=== PATIENT | male | born 1960 | race Caucasian/White ===

== ENCOUNTER 2020-01-15 16:21 | Inpatient (IN) ==
[2020-01-15] MEDS ORDERED: Isovue-370 500 ML BOTTLE IVP ONE (16:54)
[2020-01-15 17:02] LABS: Basophils % 0.3 %; Eosinophils # 0.1 K/mcL (0.0-0.6); Eosinophils % 0.4 %; Hematocrit 34.7 % (37.5-50.1); Hemoglobin 10.6 g/dL (12.9-16.9); Immature Granulocytes % 0.9 % (0-4); Lymphocytes % 8.2 %; Mean Corpuscular HGB Conc 30.5 g/dL (31.6-35.5); Mean Corpuscular Hemoglobin 25.1 pg (28.0-33.3); Mean Corpuscular Volume 82.2 fL (83.0-100.0); Mean Platelet Volume 12.6 fL (9.4-12.4); Monocytes # 1.3 K/mcL (0.0-1.3); Monocytes % 11.1 %; Neutrophils # 9.6 K/mcL (1.6-8.9); Platelet Count 316 K/mcL (140-400); Red Blood Count 4.22 M/mcL (4.19-5.50); Red Cell Distribution Width 19.9 % (11.5-14.5); Segmented Neutrophils % 79.1 %; White Blood Count 12.1 K/mcL (4.3-11.1)
[2020-01-15 17:08] LABS: INR 1.2; Prothrombin Time 13.5 Seconds (9.4-12.1)
[2020-01-15 17:29] LABS: Alanine Aminotransferase 115 Units/L (7-52); Albumin 3.6 g/dL (3.5-5.7); Albumin/Globulin Ratio 1.1 (1.1-2.2); Alkaline Phosphatase 631 Units/L (34-104); Aspartate Amino Transferase 67 Units/L (13-39); BUN/Creatinine Ratio 20 (6-26); Bilirubin,Direct 5.2 mg/dL (0.0-0.2); Bilirubin,Indirect 3.6 mg/dL (0.0-1.0); Bilirubin,Total 8.8 mg/dL (0.3-1.0); Blood Urea Nitrogen 14 mg/dL (8-23); Carbon Dioxide 25 mEq/L (23-29); Chloride 94 mEq/L (98-107); Globulin 3.4 g/dL (2.4-3.5); Glucose 176 mg/dL (70-105); Lipase 138 Units/L (11-82); Osmolality,Calculated 271 (280-300); Potassium 3.6 mEq/L (3.5-5.1); Sodium 128 mEq/L (136-145); eGFR For African Americans > 60 (> 60); eGFR For Non-African Americans > 60 (> 60)
[2020-01-15] MEDS ORDERED: Naloxone 0.4 MG/ML INJ IVP PRN (17:54)
[2020-01-15] MEDS ORDERED: Ondansetron ODT 4 MG TAB.RAPDIS SL PRN (17:54)
[2020-01-15] MEDS: 0.9 % Sodium Chloride 1,000 ML IVC SCH (18:11)
[2020-01-15] MEDS ORDERED: D5% in Water 1,000 ML IVC PRN (18:19)
[2020-01-15] MEDS ORDERED: *HR* Dextrose 50 % in Water (Vial) 50 ML VIAL IVP PRN (18:19)
[2020-01-15] MEDS ORDERED: Dextrose Gel 15 GM/37.5 ML TUBE PO PRN ×2 (18:19)
[2020-01-15 18:21] LABS: Carcinoembryonic Antigen 433.1 ng/mL (Less than 5.0)
[2020-01-15] MEDS: Piperacillin/Tazobactam 3.375 GM in 0.9 % Sodium Chloride Mini Bag 100 ML IVPB SCH (21:50)
[2020-01-15] MEDS: Insulin LISPRO 300 UNITS/3 ML VIAL SQ SCH (21:53)
[2020-01-15] MEDS ORDERED: Melatonin 3 MG TABLET PO PRN (22:36)
[2020-01-16] MEDS: Piperacillin/Tazobactam 3.375 GM in 0.9 % Sodium Chloride Mini Bag 100 ML IVPB SCH ×3 (03:30→20:45)
[2020-01-16 05:44] LABS: Basophils % 0.4 %; Eosinophils # 0.1 K/mcL (0.0-0.6); Eosinophils % 0.9 %; Hematocrit 27.8 % (37.5-50.1); Immature Granulocytes % 0.7 % (0-4); Lymphocytes # 0.8 K/mcL (0.6-4.6); Lymphocytes % 9.1 %; Mean Corpuscular HGB Conc 31.3 g/dL (31.6-35.5); Mean Corpuscular Hemoglobin 25.9 pg (28.0-33.3); Mean Corpuscular Volume 82.7 fL (83.0-100.0); Mean Platelet Volume 12.1 fL (9.4-12.4); Monocytes # 1.1 K/mcL (0.0-1.3); Monocytes % 12.5 %; Neutrophils # 6.5 K/mcL (1.6-8.9); Platelet Count 217 K/mcL (140-400); Red Blood Count 3.36 M/mcL (4.19-5.50); Red Cell Distribution Width 20.1 % (11.5-14.5); Segmented Neutrophils % 76.4 %; White Blood Count 8.6 K/mcL (4.3-11.1)
[2020-01-16 05:48] LABS: Hemoglobin 8.7 g/dL (12.9-16.9)
[2020-01-16 05:50] LABS: INR 1.3; Prothrombin Time 14.2 Seconds (9.4-12.1)
[2020-01-16 05:52] LABS: Activated Partial Thrombo Time 31.9 Seconds (26.0-36.0)
[2020-01-16 06:05] LABS: Alanine Aminotransferase 90 Units/L (7-52); Albumin 2.9 g/dL (3.5-5.7); Albumin/Globulin Ratio 1.1 (1.1-2.2); Alkaline Phosphatase 502 Units/L (34-104); Aspartate Amino Transferase 58 Units/L (13-39); BUN/Creatinine Ratio 25 (6-26); Bilirubin,Total 8.1 mg/dL (0.3-1.0); Blood Urea Nitrogen 15 mg/dL (8-23); Calcium 8.1 mg/dL (8.6-10.3); Carbon Dioxide 23 mEq/L (23-29); Chloride 98 mEq/L (98-107); Globulin 2.6 g/dL (2.4-3.5); Glucose 133 mg/dL (70-105); Osmolality,Calculated 273 (280-300); Potassium 3.4 mEq/L (3.5-5.1); Sodium 130 mEq/L (136-145); Total Protein 5.5 g/dL (6.4-8.9); eGFR For African Americans > 60 (> 60); eGFR For Non-African Americans > 60 (> 60)
[2020-01-16] MEDS: Insulin LISPRO 300 UNITS/3 ML VIAL SQ SCH ×4 (08:00→20:46)
[2020-01-16] MEDS: 0.9 % Sodium Chloride 1,000 ML IVC SCH (10:27)
[2020-01-16] MEDS: Nicotine 21 MG PATCH.TD24 TD SCH (10:39)
[2020-01-16] MEDS ORDERED: Ringers Solution, Lactated 1,000 ML IVC SCH (13:30)
[2020-01-16] MEDS ORDERED: *HR* FentaNYL (PF) 100 MCG/2 ML VIAL ONE (13:44)
[2020-01-16] MEDS ORDERED: *HR* Midazolam HCl 2 MG/2 ML VIAL ONE (13:44)
[2020-01-16] MEDS ORDERED: Indomethacin 50 MG SUPP.RECT RC ONE (15:21)
[2020-01-16] MEDS: Ringers Solution, Lactated 1,000 ML IVC SCH (17:14)
[2020-01-16 19:33] LABS: Sodium, Urine 111.5 mEq/L
[2020-01-17 02:35] LABS: Basophils % 0.2 %; Eosinophils # 0.1 K/mcL (0.0-0.6); Eosinophils % 0.6 %; Hematocrit 29.6 % (37.5-50.1); Hemoglobin 9.2 g/dL (12.9-16.9); Immature Granulocytes % 1.1 % (0-4); Lymphocytes # 0.9 K/mcL (0.6-4.6); Lymphocytes % 9.6 %; Mean Corpuscular HGB Conc 31.1 g/dL (31.6-35.5); Mean Corpuscular Hemoglobin 25.4 pg (28.0-33.3); Mean Corpuscular Volume 81.8 fL (83.0-100.0); Mean Platelet Volume 12.7 fL (9.4-12.4); Monocytes # 0.9 K/mcL (0.0-1.3); Monocytes % 10.2 %; Neutrophils # 7.1 K/mcL (1.6-8.9); Platelet Count 245 K/mcL (140-400); Red Blood Count 3.62 M/mcL (4.19-5.50); Red Cell Distribution Width 19.7 % (11.5-14.5); Segmented Neutrophils % 78.3 %
[2020-01-17] MEDS: Ringers Solution, Lactated 1,000 ML IVC SCH ×3 (02:54→16:04)
[2020-01-17] MEDS: Piperacillin/Tazobactam 3.375 GM in 0.9 % Sodium Chloride Mini Bag 100 ML IVPB SCH ×2 (02:54→12:06)
[2020-01-17 02:55] LABS: Alanine Aminotransferase 93 Units/L (7-52); Albumin/Globulin Ratio 1.1 (1.1-2.2); Alkaline Phosphatase 526 Units/L (34-104); Aspartate Amino Transferase 65 Units/L (13-39); BUN/Creatinine Ratio 15 (6-26); Bilirubin,Total 8.9 mg/dL (0.3-1.0); Blood Urea Nitrogen 10 mg/dL (8-23); Calcium 8.3 mg/dL (8.6-10.3); Carbon Dioxide 23 mEq/L (23-29); Chloride 98 mEq/L (98-107); Globulin 2.8 g/dL (2.4-3.5); Glucose 175 mg/dL (70-105); Osmolality,Calculated 273 (280-300); Potassium 3.5 mEq/L (3.5-5.1); Sodium 130 mEq/L (136-145); Total Protein 5.8 g/dL (6.4-8.9); eGFR For African Americans > 60 (> 60); eGFR For Non-African Americans > 60 (> 60)
[2020-01-17] MEDS: Nicotine 21 MG PATCH.TD24 TD SCH (08:25)
[2020-01-17] MEDS: Insulin LISPRO 300 UNITS/3 ML VIAL SQ SCH ×4 (08:27→21:05)
[2020-01-17] MEDS ORDERED: *HR* Propofol 200 MG/20 ML VIAL IVP ONE (09:28)
[2020-01-17] MEDS ORDERED: *HR* Propofol 500 MG/50 ML BOTTLE IVP ONE (09:28)
[2020-01-17] MEDS ORDERED: Lidocaine -MPF 2% 5 ML VIAL SQ ONE (09:28)
[2020-01-17] MEDS ORDERED: traZODone 50 MG TABLET PO PRN (12:00)
[2020-01-18 01:28] LABS: Basophils % 0.4 %; Eosinophils # 0.1 K/mcL (0.0-0.6); Eosinophils % 0.7 %; Hematocrit 28.9 % (37.5-50.1); Hemoglobin 9.1 g/dL (12.9-16.9); Immature Granulocytes % 0.7 % (0-4); Lymphocytes % 10.8 %; Mean Corpuscular HGB Conc 31.5 g/dL (31.6-35.5); Mean Corpuscular Hemoglobin 26.1 pg (28.0-33.3); Mean Platelet Volume 12.3 fL (9.4-12.4); Monocytes % 10.4 %; Neutrophils # 7.3 K/mcL (1.6-8.9); Platelet Count 232 K/mcL (140-400); Red Blood Count 3.48 M/mcL (4.19-5.50); Red Cell Distribution Width 20.5 % (11.5-14.5); White Blood Count 9.5 K/mcL (4.3-11.1)
[2020-01-18 01:43] LABS: Albumin 2.9 g/dL (3.5-5.7); Albumin/Globulin Ratio 1.1 (1.1-2.2); Bilirubin,Direct 5.1 mg/dL (0.0-0.2); Bilirubin,Indirect 3.2 mg/dL (0.0-1.0); Bilirubin,Total 8.3 mg/dL (0.3-1.0); Globulin 2.6 g/dL (2.4-3.5); Total Protein 5.5 g/dL (6.4-8.9)
[2020-01-18 01:45] LABS: Alanine Aminotransferase 92 Units/L (7-52); Albumin 2.9 g/dL (3.5-5.7); Albumin/Globulin Ratio 1.1 (1.1-2.2); Alkaline Phosphatase 493 Units/L (34-104); Aspartate Amino Transferase 65 Units/L (13-39); BUN/Creatinine Ratio 14 (6-26); Bilirubin,Total 8.3 mg/dL (0.3-1.0); Blood Urea Nitrogen 8 mg/dL (8-23); Calcium 8.5 mg/dL (8.6-10.3); Carbon Dioxide 23 mEq/L (23-29); Chloride 99 mEq/L (98-107); Globulin 2.7 g/dL (2.4-3.5); Glucose 117 mg/dL (70-105); Osmolality,Calculated 273 (280-300); Potassium 3.5 mEq/L (3.5-5.1); Sodium 132 mEq/L (136-145); Total Protein 5.6 g/dL (6.4-8.9); eGFR For African Americans > 60 (> 60); eGFR For Non-African Americans > 60 (> 60)
[2020-01-18 06:48] VITALS: BP 133/75
[2020-01-18] MEDS: Insulin LISPRO 300 UNITS/3 ML VIAL SQ SCH (08:14)
[2020-01-18] MEDS: Nicotine 21 MG PATCH.TD24 TD SCH (08:15)
[2020-01-18] MEDS ORDERED: *HR* Succinylcholine 200 MG/10 ML VIAL IVP ONE (09:28)
[2020-01-18] MEDS ORDERED: *HR* Propofol 200 MG/20 ML VIAL IVP ONE (09:28)
[2020-01-18] MEDS ORDERED: Lidocaine -MPF 2% 5 ML VIAL SQ ONE (09:28)
[2020-01-18] MEDS ORDERED: Lidocaine -MPF 4% 5 ML AMPUL TP ONE (09:28)
[2020-01-18] MEDS ORDERED: Ondansetron 4 MG/2 ML VIAL IVP ONE (09:28)
== END 2020-01-18 09:29 | disposition home or self-care (01) | DRG 375 ==
LOC: 3ANU 16:21 → EMEROOARM 16:21 → SUATTDRO 18:26 → 3ANU 19:30
PROVIDERS: ADMIT Internal Medicine; ATTEND Internal Medicine
PROC: ENDOEUS (2020-01-16 14:55)
PROC: ENDOCBX (2020-01-17 14:15)